=== PATIENT | male | born 1955 | race Caucasian/White ===

== ENCOUNTER 2018-04-04 21:36 | Inpatient (IN) | payer MEDICAID ==
[~2018-04-04] VITALS: Ht 172.7 cm; Wt 72.6 kg
[2018-04-04] MEDS ORDERED: LISINOPRIL5 MG ORAL (21:40)
[2018-04-04] MEDS ORDERED: CLOPIDOGREL75 MG ORAL (21:40)
[2018-04-04] MEDS ORDERED: LIPITOR80 MG ORAL (21:40)
[2018-04-04] MEDS ORDERED: METOPROLOL SUCC25 MG ORAL (21:40)
--- NOTE | 2018-04-04 21:59 | Emergency Room Report ---
History of Present Illness General Chief Complaint: Abdominal Pain Source: Patient Present Illness HPI This is a 63-year-old male with history of high blood pressure and a large left him in her hernia. Has been ongoing for years but presents with chief complaint of pain. Onset this afternoon. He said the sizes same but is more painful now. Pain is 10 out of 10. Worse with movement. No nausea no vomiting. No fever or chills. He said he scheduled for surgery in 2 weeks. Denies any other complaint. Pt is a poor historian. He doesn't know his meds or where his surgeon will be at. His travel manager came and I spoke with her. He's been complaining of pain since 3 PM. He had this problem before where was able to push it back in or occasionally she takes him to [facility] and there were able to push it in. But today was unsuccessful. Pain keeps getting worse and is what she called 911. He scheduled for surgery with Dr. Murphy at [facility] in 2 weeks. Allergies: Coded Allergies: No Known Allergies (Unverified , 04/04/18) Patient History Past Medical History: see triage record, old chart reviewed, HTN Past Surgical History: other Pertinent Family History: none Social History: Denies: smoking Immunizations: other Reviewed Nursing Documentation: PMH: Agreed; PSxH: Agreed Nursing Documentation-PMH Past Medical History: No History, Except For Hx Hypertension: Yes Hx Cerebrovascular Accident: Yes Review of Systems Eye: Denies: eye pain, blurred vision ENT: Denies: ear pain, nose congestion, throat swelling Respiratory: Denies: cough, shortness of breath Cardiovascular: Denies: chest pain, palpitations Gastrointestinal: Reports: abdominal pain; Denies: diarrhea, nausea, vomiting Musculoskeletal: Denies: back pain, joint pain Skin: Denies: rash Neurological: Denies: headache, numbness Endocrine: Denies: increased thirst, increased urine Hematologic/Lymphatic: Denies: easy bruising All Other Systems: negative except mentioned in HPI Physical Exam Vital Signs Date Time Temp Pulse Resp B/P (MAP) Pulse Ox O2 Delivery O2 Flow Rate FiO2 04/04/18 21:31 98.4 86 14 132/76 100 Room Air 98.4 vitals normal Sp02 EP Interpretation: reviewed, normal General Appearance: well appearing, no apparent distress, alert Head: normocephalic, atraumatic Eyes: bilateral eye PERRL, bilateral eye EOMI ENT: hearing grossly normal, normal pharynx Neck: full range of motion, supple, no meningismus Respiratory: chest non-tender, lungs clear, normal breath sounds Cardiovascular #1: regular rate, rhythm, no murmur Gastrointestinal: normal bowel sounds, non tender, no mass, no organomegaly, no bruit, non-distended Genitourinary: other - Large left inguinal hernia. Tender to palpation. Musculoskeletal: back normal, gait/station normal, normal range of motion Neurologic: alert, oriented x3 Psychiatric: mood/affect normal Skin: warm/dry Medical Decision Making Diagnostic Impression: Primary Impression: Incarcerated left inguinal hernia Additional Impression: SBO (small bowel obstruction) ER Course Patient with incarcerated in one a hernia. I was unable to reduce it. I tried a few times and was unsuccessful. IV antibiotics given because of his white count being elevated. Patient was approved for admission here by his insurance [employer]. I discussed the case with Dr. Emerson who will take pt to OR tonight. I also d/w Dr. William who will be admitting. Lab Results Impression labs with leukocytosis Rhythm Strip Diag. Results Rhythm Strip Time: 23:31 EP Interpretation: yes Rate: 80 Rhythm: NSR, no PVC's, no ectopy CT/MRI/US Diagnostic Results CT/MRI/US Diagnostic Results : Imaging Test Ordered: CT abdomen and pelvis Impression Read by radiologist. Small bowel obstruction secondary to 10 cm left incarcerated regular hernia containing loops of dilated small bowel. Proximal dilatation small bowel with moderate focal transition and decompression loop existing hernia. No free air. Moderate inflammation within the hernia. Last Vital Signs Date Time Temp Pulse Resp B/P (MAP) Pulse Ox O2 Delivery O2 Flow Rate FiO2 04/04/18 21:31 98.4 86 14 132/76 100 Room Air 98.4 Status: improved Disposition: ADMITTED INPATIENT Condition: Serious Saleem Estrada MD Apr 04, 2018 21:58
[2018-04-04] MEDS ORDERED: Morphine Sulfate 10mg/ml Inj IVP ONE (22:00)
[2018-04-04 22:27] LABS: ANION GAP 11 mmol/L (5-15); BLOOD UREA NITROGEN 12 mg/dL (7-18); CALCIUM 9.8 MG/DL (8.5-10.1); CARBON DIOXIDE 25 MMOL/L (21-32); CHLORIDE 103 MMOL/L (98-107); CREATININE 1.1 MG/DL (0.55-1.30); SODIUM 139 MMOL/L (136-145)
[2018-04-04 22:30] LABS: HEMATOCRIT 42.1 % (42.0-52.0); MEAN CORPUSCULAR VOLUME 88 FL (80-99); PLATELET COUNT 537 K/UL (150-450); RED BLOOD COUNT 4.77 M/UL (4.70-6.10)
[2018-04-04 22:32] LABS: ALANINE AMINOTRANSFERASE 20 U/L (12-78); ALBUMIN 3.7 G/DL (3.4-5.0); ALBUMIN/GLOBULIN RATIO 0.8 (1.0-2.7); ALKALINE PHOSPHATASE 152 U/L (46-116); ASPARTATE AMINO TRANSFERASE 17 U/L (15-37); BILIRUBIN,TOTAL 0.9 MG/DL (0.2-1.0)
[2018-04-04] MEDS ORDERED: HYDROmorphone 1mg/ml Carpuject IVP ONE (22:45)
[2018-04-04] MEDS ORDERED: Piperacillin/Tazobactam 3.375 GM in NS 110 ML IVPB ONE (23:00)
[2018-04-05] VITALS (12 sets, daily range): BP systolic 108–147; BP diastolic 62–85
--- NOTE | 2018-04-05 00:55 | Pre-Procedure Note/Attestation ---
Pre-Procedure Note/Attestation Complete Prior to Procedure Planned Procedure: left Procedure Narrative: left inguinal herniorrhaphy and release of incarceration Indications for Procedure Pre-Operative Diagnosis: incarcerated left inguinal hernia Attestation I attest that I discussed the nature of the procedure; its benefits; risks and complications; and alternatives (and the risks and benefits of such alternatives ), prior to the procedure, with the patient (or the patient's legal outside dealer sales representative). I attest that, if there was a reasonable possibility of needing a blood transfusion, the patient (or the patient's legal outside dealer sales representative) was given the [facility] standardized written summary, pursuant to the [place] Blood Safety Act ([place] Health and Safety Code # 1645, as amended). I attest that I re-evaluated the patient just prior to the surgery and that there has been no change in the patient's H&P, except as documented below: Saud Emerson MD Apr 05, 2018 00:55
[2018-04-05] MEDS ORDERED: Sterile Water Irrig 1000ml IRRIG ONE (01:00)
[2018-04-05] MEDS ORDERED: LR 1000ml ONE (01:00)
[2018-04-05] MEDS ORDERED: LR 1000ml 1,000 ML IVLG SCH (01:09)
--- NOTE | 2018-04-05 01:11 | Anethesia Preoperative Eval ---
Anesthesia Pre-op PMH/ROS General Date of Evaluation: Apr 05, 2018 Time of Evaluation: 01:01 Anesthesiologist: Leia ASA Score: ASA 3 - Emergency Mallampati Score Class I : Soft palate, uvula, fauces, pillars visible Class II: Soft palate, uvula, fauces visible Class III: Soft palate, base of uvula visible Class IV: Only hard plate visible Mallampati Classification: Class II Surgeon: Ki Diagnosis: Left Incatrcerated Inguinal Hernia Surgical Procedure: Repair Left Incatrcerated Inguinal Hernia Anesthesia History: none Family History: no anesthesia problems Allergies: Coded Allergies: No Known Allergies (Unverified , 04/04/18) Medications: see eMAR Past Medical History Cardiovascular: Reports: HTN, other - HL Neurologic/Psychiatric: Reports: CVA Anesthesia Pre-op Phys. Exam Physician Exam Last Vital Signs Date Time Temp Pulse Resp B/P (MAP) Pulse Ox O2 Delivery O2 Flow Rate FiO2 04/04/18 22:41 98.4 04/04/18 21:31 86 14 132/76 100 Room Air Constitutional: NAD Neurologic: CN 2-12 intact Cardiovascular: RRR Respiratory: CTA Gastrointestinal: S/NT/ND Airway Exam Mallampati Score: Class II MO: full ROM: full Teeth: intact Anesthesia Pre-op A/P Labs Hematology Test 04/04/18 22:00 White Blood Count 18.0 K/UL (4.8-10.8) H Red Blood Count 4.77 M/UL (4.70-6.10) Hemoglobin 14.0 G/DL (14.2-18.0) L Hematocrit 42.1 % (42.0-52.0) Mean Corpuscular Volume 88 FL (80-99) Mean Corpuscular Hemoglobin 29.4 PG (27.0-31.0) Mean Corpuscular Hemoglobin Concent 33.2 G/DL (32.0-36.0) Red Cell Distribution Width 12.0 % (11.6-14.8) Platelet Count 537 K/UL (150-450) H Mean Platelet Volume 6.1 FL (6.5-10.1) L Neutrophils (%) (Auto) % (45.0-75.0) Lymphocytes (%) (Auto) % (20.0-45.0) Monocytes (%) (Auto) % (1.0-10.0) Eosinophils (%) (Auto) % (0.0-3.0) Basophils (%) (Auto) % (0.0-2.0) Differential Total Cells Counted 100 Neutrophils % (Manual) 78 % (45-75) H Lymphocytes % (Manual) 12 % (20-45) L Monocytes % (Manual) 7 % (1-10) Eosinophils % (Manual) 1 % (0-3) Basophils % (Manual) 0 % (0-2) Band Neutrophils 2 % (0-8) Platelet Estimate Increased H Platelet Morphology Normal Red Blood Cell Morphology Normal Coagulation Test 04/04/18 22:00 Prothrombin Time 10.7 SEC (9.30-11.50) Prothromb Time International Ratio 1.0 (0.9-1.1) Activated Partial Thromboplast Time 26 SEC (23-33) Chemistry Test 04/04/18 22:00 Sodium Level 139 MMOL/L (136-145) Potassium Level 4.0 MMOL/L (3.5-5.1) Chloride Level 103 MMOL/L (98-107) Carbon Dioxide Level 25 MMOL/L (21-32) Anion Gap 11 mmol/L (5-15) Blood Urea Nitrogen 12 mg/dL (7-18) Creatinine 1.1 MG/DL (0.55-1.30) Estimat Glomerular Filtration Rate > 60 mL/min (>60) Glucose Level 142 MG/DL (74-106) H Calcium Level 9.8 MG/DL (8.5-10.1) Total Bilirubin 0.9 MG/DL (0.2-1.0) Aspartate Amino Transf (AST/SGOT) 17 U/L (15-37) Alanine Aminotransferase (ALT/SGPT) 20 U/L (12-78) Alkaline Phosphatase 152 U/L (46-116) H Total Protein 8.3 G/DL (6.4-8.2) H Albumin 3.7 G/DL (3.4-5.0) Globulin 4.6 g/dL Albumin/Globulin Ratio 0.8 (1.0-2.7) L Lipase 117 U/L (73-393) Risk Assessment & Plan Assessment: ASA 3E Status Change Before Surgery: No Pre-Antibiotics Dru Gram Ancef IV Given Within 1 Hr of Incision: Yes Time Given: 01:24 David Dupree MD Apr 05, 2018 01:11
[2018-04-05] MEDS ORDERED: Zemuron 50mg/5ml Inj IV ONE (01:13)
[2018-04-05] MEDS ORDERED: fentaNYL 100 mcg/2 mL IV PRN (01:15)
[2018-04-05] MEDS ORDERED: Sodium Chloride 10ml vial INJ ONE (01:15)
[2018-04-05] MEDS ORDERED: oxyCODONE HCL/Acetaminophen 5/325mg ORAL PRN (01:15)
[2018-04-05] MEDS ORDERED: Metoclopramide 10mg/2ml Inj IVP PRN ×2 (01:15→03:00)
[2018-04-05] MEDS ORDERED: Hydromorphone 0.5mg/0.5ml inj IVP PRN ×2 (01:15→03:00)
[2018-04-05] MEDS ORDERED: Midazolam 2mg/2ml Inj IVP PRN (01:15)
[2018-04-05] MEDS ORDERED: Labetalol 5mg/ml 20ml vial IV PRN (01:15)
[2018-04-05] MEDS ORDERED: DiphenhydrAMINE 50mg/ml Inj IVP PRN (01:15)
[2018-04-05] MEDS ORDERED: Meperidine 50mg/ml Inj(FOR RIGORS ONLY) IVP PRN (01:15)
[2018-04-05] MEDS ORDERED: Dexamethasone 4mg/ml vial ONE (01:15)
[2018-04-05] MEDS ORDERED: HYDROcodone/Acetamin 7.5/325 tab ORAL PRN (01:15)
[2018-04-05] MEDS ORDERED: LORazepam Inj 2mg/ml 1ml IV PRN (01:15)
[2018-04-05] MEDS ORDERED: Lidocaine 1% MPF 10mg/ml 5ml ONE (01:15)
[2018-04-05] MEDS ORDERED: Atropine Sulfate 0.4mg/ml inj IVP PRN (01:15)
[2018-04-05] MEDS ORDERED: Propofol 200mg/20ml IV ONE (01:15)
[2018-04-05] MEDS ORDERED: Norco 5mg/325mg tab ORAL PRN (01:15)
[2018-04-05] MEDS ORDERED: Ketorolac 30mg Inj IV PRN ×2 (01:15)
[2018-04-05] MEDS ORDERED: NeoSporin Gu Irrig 1ml Amp IRRIG ONE (01:23)
[2018-04-05] MEDS ORDERED: Bupivacaine 0.5% Inj 30 ml vial INJ ONE (01:23)
[2018-04-05] MEDS ORDERED: Bacitracin 50000 Units Vial ONE (01:23)
[2018-04-05] MEDS ORDERED: Bupivacaine w/Epi 0.25% 30ml Vial INJ ONE (01:23)
--- NOTE | 2018-04-05 01:47 | Immediate Post-Op Evaluation ---
Immediate Post-Op Evalulation Immediate Post-Op Evalulation Procedure: Repair Left Incatrcerated Inguinal Hernia Date of Evaluation: Apr 05, 2018 Time of Evaluation: 03:17 IV Fluids: 500 LR Blood Products: 0 Estimated Blood Loss: 10 Urinary Output: 0 Blood Pressure Systolic: 137 Blood Pressure Diastolic: 85 Pulse Rate: 93 Respiratory Rate: 16 O2 Sat by Pulse Oximetry: 100 Temperature (Fahrenheit): 98.7 Pain Score (1-10): 2 Nausea: No Vomiting: No Complications 0 Patient Status: awake, reacts, patent, extubated, none Hydration Status: adequate Dru Gram Ancef IV Given Within 1 Hr of Incision: Yes Time Given: 01:24 David Dupree MD Apr 05, 2018 01:47
[2018-04-05] MEDS ORDERED: NS Irrig 1000ml IRRIG ONE (02:14)
--- NOTE | 2018-04-05 02:59 | Brief Operative Note ---
Immediate Post Operative Note Operative Note Pre-op Diagnosis: incarcerated left inguinal hernia Procedure: left inguinal herniorrhaphy and release of incarceration Post-op Diagnosis: same as pre-op Findings: consistent w/pre-op dx studies Surgeon: MD [place] Supervisor: none Anesthesiologist: Dr. Arora Anesthesia: general Specimen: none Complications: none Condition: stable Fluids: per anesthesiologist Estimated Blood Loss: volume - 50 ml Drains: none Implant(s) used?: Yes - prolene mesh Saud Emerson MD Apr 05, 2018 02:59
[2018-04-05] MEDS ORDERED: HYDROmorphone 1mg/ml Carpuject IVP PRN (03:00)
[2018-04-05] MEDS ORDERED: Sennosides 8.6mg ORAL PRN (03:00)
[2018-04-05] MEDS ORDERED: HYDROcodone/Acetamin 10/325 tab ORAL PRN (03:00)
[2018-04-05] MEDS ORDERED: Meperidine 50mg/ml Inj(FOR RIGORS ONLY) ONE (03:32)
--- NOTE | 2018-04-05 04:45 | Consultation ---
DATE OF CONSULTATION: 04/04/2018 PREOPERATIVE CONSULTATION CONSULTING PHYSICIAN: Saud Emerson M.D. REQUESTING PHYSICIAN: ER physician. REASON FOR CONSULTATION: Left groin and abdominal pain. HISTORY OF PRESENT ILLNESS: This is a 63-year-old male who presented to the emergency room with irreducible left inguinal hernia and abdominal pain and pain in the left groin. He stated that he has had a left inguinal hernia for about eight years, but it has been reducible especially he was able to manually reduce it, but since 3 o'clock in the afternoon today, the hernia has been out and irreducible. He has been having pain in the left groin and abdomen, but he denies vomiting. He had normal bowel movement prior to the onset of pain. He has been scheduled to have this hernia repaired at [facility] on 04/24/2018. PAST MEDICAL HISTORY: He claims to be allergic to penicillin. He denies asthma, diabetes, and renal diseases. He has a history of hypertension, WI, and stroke. PAST SURGICAL HISTORY: Include angioplasty and stent placement, which has to be revised one year ago. MEDICATIONS: Currently, he is on lisinopril, Plavix, atorvastatin. SOCIAL HISTORY: The patient is a 63-year-old male, , father of two children. He is an alcoholic, but apparently he has stopped drinking 2 to 3 months ago, but denies smoking. REVIEW OF SYSTEMS: Noncontributory. PHYSICAL EXAMINATION: GENERAL: The patient appeared to be a well-developed, well-nourished 63-year-old male, lying on the gurney, complaining of pain in the left lower groin. HEENT: Head is normocephalic and atraumatic. Eyes, pupils are equal, round, and reactive to light. Mouth is clear. NECK: There is no palpable thyromegaly or adenopathy. CHEST: Clear to auscultation and percussion. HEART: There is no gallop or murmur. S1 and S2 are within normal limits. ABDOMEN: Soft, flat, nontender. There is no palpable organomegaly and bowel sounds are audible. GENITAL: He has a very large irreducible left inguinal hernia, which is tender on palpation. EXTREMITIES: Within normal limits. ASSESSMENT: Incarcerated left inguinal hernia. PLAN: The patient requires an emergency left inguinal herniorrhaphy and release of the incarceration. He has been notified that due to the Plavix, he has a chance of bleeding besides he has a history of hypertension, WI, stroke, and even history of some kind of seizure, all of which can cause problem after the surgery, but he understood and granted the consent. Saud Emerson M.D. DR: AMELIA JOB#: [id number] CC: CHRIS
--- NOTE | 2018-04-05 05:45 | Operative Note - Dictated ---
DATE OF OPERATION: 04/05/2018 PREOPERATIVE DIAGNOSIS: Incarcerated left inguinal hernia. POSTOPERATIVE DIAGNOSIS: Incarcerated left inguinal hernia. OPERATION: 1. Left inguinal herniorrhaphy with application of mesh and release of the incarceration. 2. Blockage of the nerves to the left groin for the postoperative pain control. COMPLICATIONS: None. SURGEON: Saud Emerson M.D. ENGINEERING PSYCHOLOGIST: None. ANESTHESIA: General with endotracheal tube. ANESTHESIOLOGIST: David Dupree M.D. INDICATION: This is a 63-year-old male, who presented with pain in the left groin and abdomen. He stated that he has had a left inguinal hernia for about eight years, but it has been reducible and he was able to manually reduce it. He claimed that in 3 o'clock in the afternoon yesterday, the hernia has been irreducible and tender, associated with abdominal pain. Physical examination showed very large irreducible left inguinal hernia, which was all the way to the bottom of the scrotum. This hernia was at the size of a papaya. The CAT scan showed small bowel obstruction. DESCRIPTION OF PROCEDURE: The patient was placed supine on the operating table and after general anesthesia with endotracheal tube, reduction of the hernia was attempted, which was unsuccessful, so the left groin was properly prepped and draped. A transverse incision was given at the left groin and was carried sharply through the subcutaneous tissue. The aponeurosis of the external oblique was reached and was opened along the fibers towards the external ring. The hernia sac, which was very distended was identified, and was gradually dissected and isolated and then the hernia sac was opened up. It was noticed that it contained a very large amount of small bowel, which was gradually reduced into the intraperitoneal cavity and then further exploration was performed, which showed the sigmoid colon, which had small sliding , so the adhesions were released and the colon was returned into the intraperitoneal cavity. At the next step, the hernia sac was dissected and isolated immediately distal to the internal ring this area it was transected and then it was sutured and ligated with #0 silk. The rest of the sac was left in situ and only the edges were cauterized. At the next step, the spermatic cord was isolated and the floor of the inguinal canal, which was completely destroyed was exposed. Initially, a Radha repair was performed with running suture of O silk from pubic tubercle towards the internal ring. After this repair, a piece of Prolene mesh was selected and was tailored to the size of the floor of the inguinal canal. This mesh was secured in place with multiple interrupted sutures of 2-0 Vicryl. The spermatic cord was passed through a small slit at the lower part of the mesh. During the dissection and repair, both ilioinguinal and iliohypogastric nerves were identified and preserved. After the application of the mesh, the incision was thoroughly irrigated with antibiotic solution and was infiltrated with total of 20 mL of Marcaine 0.5%. The nerves to the left groin were blocked with infiltration of Marcaine for the postoperative pain control. After the injection, the aponeurosis of the external oblique was approximated with running suture of 2-0 Vicryl and the subcutaneous tissue was approximated in two layers with a 3-0 plain catgut and the skin incision, which was over 3 inches was approximated with running subcuticular suture of 4-0 chromic. Initially, I decided to place a drain in the wound, but at the time of the closure, the wound was completely dry and I did not see any reason to put a drain. The patient tolerated the procedure very well and was transferred to recovery room in stable condition and extubated. The sponge and needle count correct. Estimated blood loss 50 mL. Condition of the patient at the end of the procedure was stable. Saud Emerson M.D. DR: SALO JOB#: [id number] CC: CHRIS
[2018-04-05] MEDS ORDERED: D5 1/2NS w/KCl 20mEq 1,000 ML IV SCH (06:00)
[2018-04-05] MEDS ORDERED: Docusate 100mg cap ORAL SCH (09:00)
[2018-04-05] MEDS ORDERED: Enoxaparin 40mg Inj SUBQ SCH (09:00)
--- NOTE | 2018-04-05 09:17 | Diagnostic Imaging Report ---
Indication: Abdominal pain, history of left inguinal hernia Technique: Spiral acquisitions obtained through the abdomen and pelvis. No oral contrast utilized, per emergency room physician request No IV contrast utilized, per referring physician request.. Multiplanar reconstructions were generated. Total dose length product 765.45 mGycm. CTDIvol(s) 12.57 mGy. Dose reduction achieved using automated exposure control Comparison: None Findings: There is a large left indirect inguinal hernia. This contains multiple loops of the distal ileum, as well as a large loop of the sigmoid colon. The ileum proximal to the hernia is moderately distended with fluid and gas, and there are air-fluid levels. Some of the loops within the hernia sac are also dilated, filled with fluid. A small amount of fluid or edema is seen within the fat in the hernia sac. The small bowel wall within the hernia sac is nondilated. The appendix is not definitely visualized, but no findings to suggest acute appendicitis are evident. There are scattered colonic diverticula. No free or loculated intraperitoneal gas or fluid is evident. The distal esophagus demonstrates mild wall thickening, and there is equivocal evidence of a small sliding-type hiatal hernia. Lack of IV contrast limits assessment of the solid organs. The liver demonstrates a tiny subcentimeter low-attenuation lesion in segment 5 which is too small to characterize. The gallbladder, bile ducts, pancreas, spleen, adrenals, right kidney are unremarkable. Left kidney demonstrates a nonobstructive 2 mm lower pole calculus. No retroperitoneal or mesenteric mass or adenopathy. No pelvic mass or adenopathy. The included lung bases demonstrate linear scarring or atelectasis bilaterally. There are degenerative changes of the lumbar spine. Impression: Large left indirect inguinal hernia. This contains multiple loops of distal ileum. There is dilatation of the ileum proximal to the hernia as well as within the hernia, consistent with small bowel obstruction caused by it. The hernia also contains a loop of sigmoid colon. The sigmoid component appears to be nonobstructed. Some fluid within the hernia sac could indicate strangulation as well as obstruction. Colonic diverticulosis. No evidence of diverticulitis Equivocal distal esophageal wall thickening, could indicate esophagitis. There may be a small sliding-type hiatal hernia Nonobstructive 2 mm left lower pole intrarenal calculus Subcentimeter low-attenuation liver lesion, too small to characterize, most likely benign simple cyst or bile hamartoma Incidental findings of degenerative spondylosis, basilar pulmonary parenchymal scarring or atelectasis This agrees with the preliminary interpretation provided overnight by Dr. Evans The CT scanner at [facility] is accredited by the [employer] and the scans are performed using protocols designed to limit radiation exposure to as low as reasonably achievable to attain images of sufficient resolution adequate for diagnostic evaluation.
--- NOTE | 2018-04-05 13:02 | General Surgery Progress Note ---
General Surgery-Progress Note Subjective Procedure Performed left inguinal herniorrhaphy and release of incarceration Symptoms: improved Objective Last 24 Hour Vital Signs Date Time Temp Pulse Resp B/P (MAP) Pulse Ox O2 Delivery O2 Flow Rate FiO2 04/05/18 12:00 Nasal Cannula 2.0 04/05/18 12:00 2.0 04/05/18 08:00 Nasal Cannula 2.0 04/05/18 08:00 70 04/05/18 08:00 97.9 81 20 120/67 (84) 98 97.9 04/05/18 06:28 Nasal Cannula 2.0 04/05/18 05:00 97.2 79 20 108/67 (81) 100 97.2 04/05/18 04:31 77 04/05/18 04:29 Nasal Cannula 2.0 04/05/18 04:10 2.0 04/05/18 04:10 98.2 75 16 133/73 (93) 99 98.2 04/05/18 03:51 97.8 04/05/18 03:51 97.8 04/05/18 03:50 97.8 70 14 115/62 100 Nasal Cannula 3 97.8 04/05/18 03:40 78 15 134/73 100 Nasal Cannula 3 04/05/18 03:36 98.7 04/05/18 03:32 98.7 04/05/18 03:30 93 14 125/70 100 Nasal Cannula 3 04/05/18 03:25 95 15 147/75 100 Nasal Cannula 3 04/05/18 03:15 96 18 132/82 100 Simple Mask 6 04/05/18 03:10 76 14 125/70 100 Simple Mask 6 04/05/18 03:07 98.7 90 16 137/85 100 Simple Mask 6 98.7 04/05/18 03:07 209.7 93 16 100 04/05/18 01:00 98.7 74 16 128/70 100 Room Air 04/05/18 01:00 98.4 14 132/76 100 Room Air 98.4 04/04/18 22:41 98.4 04/04/18 21:31 98.4 86 14 132/76 100 Room Air 98.4 I&O Intake and Output 04/04/18 04/05/18 19:00 07:00 Intake Total 700 ml Output Total 10 ml Balance 690 ml IV Total 700 ml Output Urine Total 0 ml Estimated Blood Loss 10 ml # Voids 1 Dressing: dry Respiratory: clear Abdomen: soft, non-tender, present bowel sounds Extremities: no tenderness Laboratory Tests Test 04/04/18 22:00 White Blood Count 18.0 K/UL (4.8-10.8) H Red Blood Count 4.77 M/UL (4.70-6.10) Hemoglobin 14.0 G/DL (14.2-18.0) L Hematocrit 42.1 % (42.0-52.0) Mean Corpuscular Volume 88 FL (80-99) Mean Corpuscular Hemoglobin 29.4 PG (27.0-31.0) Mean Corpuscular Hemoglobin Concent 33.2 G/DL (32.0-36.0) Red Cell Distribution Width 12.0 % (11.6-14.8) Platelet Count 537 K/UL (150-450) H Mean Platelet Volume 6.1 FL (6.5-10.1) L Neutrophils (%) (Auto) % (45.0-75.0) Lymphocytes (%) (Auto) % (20.0-45.0) Monocytes (%) (Auto) % (1.0-10.0) Eosinophils (%) (Auto) % (0.0-3.0) Basophils (%) (Auto) % (0.0-2.0) Differential Total Cells Counted 100 Neutrophils % (Manual) 78 % (45-75) H Lymphocytes % (Manual) 12 % (20-45) L Monocytes % (Manual) 7 % (1-10) Eosinophils % (Manual) 1 % (0-3) Basophils % (Manual) 0 % (0-2) Band Neutrophils 2 % (0-8) Platelet Estimate Increased H Platelet Morphology Normal Red Blood Cell Morphology Normal Prothrombin Time 10.7 SEC (9.30-11.50) Prothromb Time International Ratio 1.0 (0.9-1.1) Activated Partial Thromboplast Time 26 SEC (23-33) Sodium Level 139 MMOL/L (136-145) Potassium Level 4.0 MMOL/L (3.5-5.1) Chloride Level 103 MMOL/L (98-107) Carbon Dioxide Level 25 MMOL/L (21-32) Anion Gap 11 mmol/L (5-15) Blood Urea Nitrogen 12 mg/dL (7-18) Creatinine 1.1 MG/DL (0.55-1.30) Estimat Glomerular Filtration Rate > 60 mL/min (>60) Glucose Level 142 MG/DL (74-106) H Calcium Level 9.8 MG/DL (8.5-10.1) Total Bilirubin 0.9 MG/DL (0.2-1.0) Aspartate Amino Transf (AST/SGOT) 17 U/L (15-37) Alanine Aminotransferase (ALT/SGPT) 20 U/L (12-78) Alkaline Phosphatase 152 U/L (46-116) H Total Protein 8.3 G/DL (6.4-8.2) H Albumin 3.7 G/DL (3.4-5.0) Globulin 4.6 g/dL Albumin/Globulin Ratio 0.8 (1.0-2.7) L Lipase 117 U/L (73-393) Assessment Additional Comments S/P incarcerated left inguinal hernia Plan Additional Comments discharge to home Saud Emerson MD Apr 05, 2018 13:02
--- NOTE | 2018-04-05 13:07 | Discharge Instructions ---
Discharge Instructions Discharge Instructions Follow up with: my office one week Diet: 4 GM sodium (no salt added) Resume Normal Activity?: Yes Activity: as tolerated For Surgical Patients Clean and Dry: other - dressing will be removed by surgeon May shower: Yes For Congestive Heart Failure Reminder Report to your physician any weight gain of 5 pounds or more in one week. Saud Emerson MD Apr 05, 2018 13:07
[2018-04-05] MEDS ORDERED: LEVAQUIN500 MG ORAL (13:17)
[2018-04-05] MEDS ORDERED: TRAMADOL HCL50 MG ORAL (13:18)
--- NOTE | 2018-04-05 21:15 | Discharge Summary ---
DATE OF ADMISSION: 04/05/2018 DATE OF DISCHARGE: 04/05/2018 ADMITTING DIAGNOSIS: Incarcerated left inguinal hernia. POSTOPERATIVE DIAGNOSIS: Incarcerated left inguinal hernia. OPERATION: Left inguinal herniorrhaphy and release of the incarceration. COMPLICATIONS: None. INDICATION: This is a 63-year-old male, who presented with pain at the left groin and abdomen for about 8 hours. He stated that he had a hernia for about 8 years, but since 3 o'clock in the afternoon on the day of the admission, the hernia has been irreducible and tender. Besides, he had abdominal pain. Physical examination showed irreducible left inguinal hernia to the bottom of the scrotum, which was very tender. CAT scan showed small bowel obstruction. HOSPITAL COURSE: The patient was admitted to hospital and immediately underwent left inguinal herniorrhaphy and release of the incarceration. was uneventful and this morning he has had a small amount of bowel movement. At the time of this dictation, the patient is tolerating liquid diet. His chest is clear. The abdomen is soft and flat. The incision in the left groin is healing very well with minimal edema. So, at this time, he will be discharged to home to be followed in my office in 1 week. DISCHARGE MEDICATION: Levaquin, tramadol, and Shira-Colace. DISCHARGE CONDITION: Condition of the patient at the time of discharge improved. FOLLOWUP: Followup in the office in 1 week. DISCHARGE INSTRUCTIONS: The patient has been instructed about the diet, activity, showering, and medication. Saud Emerson M.D. DR: GLORIA JOB#: [id number] CC:
== END 2018-04-05 14:05 | disposition home or self-care (01) | DRG 228 ==
LOC: EDBD 21:36 → EMR 22:00 → EDBEDREQ 04-05 00:23 → SDS 04-05 00:28 → 2W 04-05 04:18 → UNDODISIN 04-05 14:05
PROC: 0YU60JZ Supplement Left Inguinal Region with Synthetic Substitute, Open Approach (ICD-10-PCS; principal; 2018-04-05 01:00)
DX: K40.30 Unilateral inguinal hernia, with obstruction, without gangrene, not specified as recurrent (principal); I10 Essential (primary) hypertension; Z88.0 Allergy status to penicillin; I25.2 Old myocardial infarction; Z86.73 Personal history of transient ischemic attack (TIA), and cerebral infarction without residual deficits; I25.10 Atherosclerotic heart disease of native coronary artery without angina pectoris; Z95.5 Presence of coronary angioplasty implant and graft; Z79.02 Long term (current) use of antithrombotics/antiplatelets
CPT/HCPCS: 36415; 74176; 80053; 83690; 85007; 85025; 85610; 85730; 94003; 94150; J2250; J2405